=== PATIENT | male | born 1960 | race Caucasian/White ===

== ENCOUNTER 2016-12-12 10:19 | Emergency (ER) | payer OTHER ==
[~2016-12-12] VITALS: Ht 185.4 cm; Wt 115.7 kg
[2016-12-12] VITALS (7 sets, daily range): BP systolic 113–153; BP diastolic 76–91
[2016-12-12] MEDS ORDERED: NKM (12:15)
[2016-12-12 12:26] LABS: EOSINOPHILS % (AUTO) 2.2 % (0.0-3.0); LYMPHOCYTES % (AUTO) 19.6 % (20.0-45.0); MEAN CORPUSCULAR HGB CONC 33.4 G/DL (32.0-36.0); MEAN CORPUSCULAR VOLUME 90 FL (80-99); MEAN PLATELET VOLUME 6.8 FL (6.5-10.1); MONOCYTES % (AUTO) 7.1 % (1.0-10.0); NEUTROPHILS % (AUTO) 70.1 % (45.0-75.0); PLATELET COUNT 221 K/UL (150-450); RED BLOOD COUNT 5.16 M/UL (4.70-6.10); RED CELL DISTRIBUTION WIDTH 11.7 % (11.6-14.8); WHITE BLOOD COUNT 7.1 K/UL (4.8-10.8)
[2016-12-12 12:40] LABS: ALANINE AMINOTRANSFERASE 46 U/L (3-41); ALBUMIN/GLOBULIN RATIO 1.6 (1.0-2.7); ANION GAP 17 (5-15); ASPARTATE AMINO TRANSFERASE 30 U/L (5-40); CALCIUM 9.4 mg/dL (8.6-10.2); CARBON DIOXIDE 23 mEQ/L (20-30); CHLORIDE 101 mEQ/L (98-107); CREATININE 1.2 mg/dL (0.7-1.2); GLOMERULAR FILTRATION RATE > 60 mL/min (>60); HEMOLYSIS 24; POTASSIUM 4.3 mEQ/L (3.4-4.9); SODIUM 141 mEQ/L (135-145); TOTAL PROTEIN 7.6 g/dL (6.6-8.7); TROPONIN I < 0.30 ng/mL (<=0.30)
[2016-12-12 12:50] LABS: CKMB 2.2 ng/mL (< 6.7)
--- NOTE | 2016-12-12 13:02 | Diagnostic Imaging Report ---
Indication: Headache Technique: Contiguous 5 mm thick transaxial imaging of the head obtained in a Siemens Sensation [address] scanner. Soft tissue and bone windows generated. Total Dose length Product (DLP): [address] Dose Index Volume (CTDIvol): 70.38 mGy Comparison: none Findings: There is mild prominence of the ventricles, basal cisterns, and cerebral sulci consistent with atrophy. Mild, nonspecific, white matter hypoattenuation is noted throughout the brain consistent with chronic small vessel disease. There is no midline shift, edema, acute hemorrhage, mass effect, or abnormal extra-axial fluid collections. Bones and extra osseous soft tissues are unremarkable. Impression: No acute intracranial bleed, mass effect or edema. Mild atrophy of the brain. Nonspecific white matter hypoattenuation probably due to chronic small vessel disease. The CT scanner at [facility] is accredited by the [employer] and the scans are performed using protocols designed to limit radiation exposure to as low as reasonably achievable to attain images of sufficient resolution adequate for diagnostic evaluation.
[2016-12-12] MEDS ORDERED: Ketorolac 30mg Inj IV ONE (13:45)
[2016-12-12] MEDS ORDERED: Cyclobenzaprine 10mg Tab ORAL ONE (13:45)
[2016-12-12 14:18] LABS: APPEARANCE,URINE CLEAR; KETONES,URINE 1+ (NEGATIVE); LEUKOCYTE ESTERASE ,URINE 1+ (NEGATIVE); NITRITE,URINE NEGATIVE (NEGATIVE); PH,URINE 6 (4.5-8.0); PROTEIN,URINE 2+ (NEGATIVE); UROBILINOGEN,URINE NORMAL MG/DL (0.0-1.0)
[2016-12-12 14:29] LABS: BACTERIA,URINE FEW /HPF; MUCUS,URINE FEW /LPF (NONE/OCC); RBC,URINE 0-2 /HPF (0 - 0); SQUAMOUS EPITHELIAL CELL,UR OCCASIONAL /LPF (NONE/OCC)
--- NOTE | 2016-12-12 14:52 | Emergency Room Report ---
History of Present Illness General Chief Complaint: Pain Source: Patient Present Illness HPI 56 YO M presents with left shoulder pain radiating to neck and left arm. Associated with dizziness this morning. Denies chest pain, SOB, palpitations, abd pain, nausea/vomiting. Patient denies history of HTN, DM, HLD. Non smoker , non-drinker. No drug use. Father of [place] at ~50. On ROS, endorses "a few months" of headache, worse in morning. Wakes him up at 5am. 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." Allergies: Coded Allergies: No Known Allergies (Unverified , 12/12/16) Patient History Past Medical History: none Past Surgical History: none Pertinent Family History: none Social History: Denies: alcohol use, drug use, smoking Immunizations: UTD Reviewed Nursing Documentation: PMH: Agreed, PSxH: Agreed Nursing Documentation-PMH Past Medical History: No History, Except For Hx Hypertension: Yes Review of Systems All Other Systems: negative except mentioned in HPI Physical Exam Vital Signs Date Time Temp Pulse Resp B/P Pulse Ox O2 Delivery O2 Flow Rate FiO2 12/12/16 10:16 98.1 80 16 113/80 99 12/12/16 13:14 Room Air Sp02 EP Interpretation: reviewed, normal General Appearance: normal inspection, no apparent distress, alert, GCS 15, non -toxic, mild distress Head: normocephalic, atraumatic Eyes: bilateral eye EOMI, bilateral eye PERRL ENT: normal ENT inspection, hearing grossly normal, normal pharynx, no angioedema, normal voice Neck: normal inspection, full range of motion, supple, no carotid bruits Respiratory: normal inspection, lungs clear, normal breath sounds, no rhonchi, no respiratory distress, no retraction, no accessory muscle use, no wheezing Cardiovascular #1: regular rate, rhythm, no edema Gastrointestinal: normal inspection, normal bowel sounds, non tender, soft, no guarding, no hernia Genitourinary: no CVA tenderness Musculoskeletal: normal inspection, back normal, normal range of motion, Francesca' s Sign negative Neurologic: normal inspection, alert, oriented x3, responsive, dress fitter III-XII nml as tested, motor strength/tone normal, speech normal Psychiatric: normal inspection, judgement/insight normal, mood/affect normal Skin: normal inspection, normal color, no rash Procedures Critical Care Time Critical Care Time CC time 60 minutes Care for a 56 YO M with left arm/neck/jaw pain and AM headaches. Regular chiropractor manipulation. DDx includes AMI, dissection, MSK pain Patient is oriented and alert. No trauma. VSS. Afebrile. Comprehensive physical exam completed, atraumatic. Labs include CBC and chem panel, troponin, CXR, EKG 12 lead and constant cardiac rhythm strip monitoring, IV established wide bore, Coags, T&S CT head to evalu for mass as cause of AM headaches CTA neck to eval for dissection Airway adequately maintained by patient upon arrival. CTA neck right vertebral artery dissection. Possible aortic arch dissection seen on CT Neck Physician spent 60 minutes of direct critical care time monitoring patient's respiratory, cardiac and neurological status, reassessment, review of imaging, labs and discussion with attending hospitalist, Vascular Surgeron Dr Cook at [facility] Does not include procedures Medical Decision Making Diagnostic Impression: Primary Impression: Dissection of cerebral artery Additional Impressions: Aortic dissection, thoracoabdominal Neck pain on left side Shoulder pain, left Qualified Codes: M25.512 - Pain in left shoulder Back pain Qualified Codes: M54.5 - Low back pain ER Course 56 YO M found to have acute right vertebral artery dissection. Possible aortic arch dissection as well. BP stable. HR 80. Will HOLD on IV heparin given possible concurrent aortic arch dissection Dr Cook of Vascular Surgery at [facility] consulted on phone - recommends IV heparin if NO dissection of aortic arch. Otherwise medical mgmt only - Dr Cook signed off - states patient can be admitted at [place] with Neuro consult , does NOT warrant transfer. 320pm: CTA chest on wet read from Radiologist also demonstrates aortic dissection extending from aortic root into the abdomen. Official read is pending. Immediate call made back to [facility] to speak with CT Surgery. Patient given dose of Labetolol 10mg IV As of 336pm, [facility] Transfer Desk stating unable to get in touch with any of their CT surgeons We are actively trying transfer to [facility] I endorsed to Dr Hernandez to followup disposition EKG Diagnostic Results Rate: normal Rhythm: NSR ST Segments: no acute changes ASA given to the pt in ED: No Rhythm Strip Diag. Results EP Interpretation: yes Rate: 80 Rhythm: NSR, no PVC's, no ectopy Chest X-Ray Diagnostic Results EP Interpretation: Yes Findings: no consolidation, no effusion, no pneumothorax Number of Views: 1 Last Vital Signs Date Time Temp Pulse Resp B/P Pulse Ox O2 Delivery O2 Flow Rate FiO2 12/12/16 13:14 97.9 65 17 137/79 100 Room Air Status: improved Disposition: ADMITTED INPATIENT Condition: Critical Referrals: NOT CHOSEN IPA/,REFERRING (PCP) MARILOU SALAS M.D. Dec 12, 2016 14:52
--- NOTE | 2016-12-12 14:55 | Diagnostic Imaging Report ---
Indication: Neck pain. Recent chiropractor manipulation of the neck. Pain radiates to the neck and jaw since this morning. Technique: Continuous helical transaxial imaging of the neck was obtained from the aortic arch to the skull base during rapid intravenous contrast administration. Arterial phase of enhancement obtained. Coronal 2-D reformats were also obtained and maximum intensity projection images in multiple planes. Study obtained in a Siemens sensation [address] Total Dose length Product (DLP): [address] Dose Index Volume (CTDIvol): 17, 155, 58 mGy Comparison: None Findings: There is marked amount of artifact involving the lower part of the cervical spine and thoracic inlet to many evaluation of the origins of the common carotid artery and vertebral arteries. The aortic arch appears prominent but is not well opacified. There is a curvilinear focus within the arch noted. There is much artifact and this could represent artifact. The possibility of a dissection should be considered. There is a short segment dissection approximately 3.5 cm long involving the right vertebral artery seen from the level of C4-5 to C2-3. The right vertebral artery appears otherwise unremarkable without evidence of significant stenosis or occlusion to the level of the skull base. The origin of the right vertebral artery is seen but not well imaged because of artifact. The left vertebral artery is difficult to follow due to its small size. At the level of the upper cervical cord and brainstem, the left vertebral artery is not seen. There is a small vessel present on the left which is likely posterior inferior cerebellar artery. The origin of the left vertebral is difficult to see. The common carotid artery appears normal as visualized. The origins of these 2 vessels are not seen well at the level of the arch. The carotid bifurcations appear normal. The internal carotid arteries appear normal below the skull base and are seen to the level of the [place] of [place]. Impression: 3.5 cm short segment segment dissection involving the right vertebral artery from C4-5 to C2-3. No associated abnormalities. Question of a dissection involving the aortic arch. Evaluation limited by considerable artifact. CTA chest will be performed. Small, nondominant left vertebral artery, some portions of which are not well demonstrated. Critical value communication. Findings were discussed via telephone with Dr. Mckay in the emergency department at 2:30 PM, 12/12/16.
[2016-12-12] MEDS ORDERED: Labetalol 5mg/ml 20ml vial IV ONE ×4 (15:15→17:00)
[2016-12-12] MEDS ORDERED: Morphine Sulfate 2mg/ml Inj IVP ONE (15:45)
[2016-12-12] MEDS ORDERED: fentaNYL 100 mcg/2 mL IV ONE ×2 (16:15→17:15)
--- NOTE | 2016-12-13 18:11 | Cardiology Report ---
APPROVED REPORT EKG Measurement Heart [id number] Normal sinus rhythm Moderate voltage criteria for LVH, may be normal variant Borderline ECG
--- NOTE | 2016-12-15 09:39 | Diagnostic Imaging Report ---
Indication: Abnormal CTA neck demonstrate a questionable aortic arch dissection. Technique: Continuous helical transaxial imaging of the chest, abdomen and pelvis was obtained from the thoracic inlet to the pubic symphysis during rapid intravenous contrast administration. Arterial phase of enhancement obtained. Coronal 2-D reformats were also obtained and maximum intensity projection images in multiple planes. Study obtained in a Siemens sensation [address] Total Dose length Product (DLP): [address] Dose Index Volume (CTDIvol): 8x3, 73, 23 mGy Comparison: None Findings: There is evidence of a Octavio type A aortic dissection with the dissection starting at the aortic root extending into the ascending aorta and arch and into the descending thoracic aorta. The ascending aorta and aortic arch are mildly dilated measuring up to 4.7 cm. Both the true lumen and false lumen opacify with contrast material. The dissection extends into the left subclavian artery. The origin of the left vertebral artery opacifies normally. The origin of the right vertebral artery opacifies normally, something that was not seen on the prior CTA neck done earlier today. The abdominal aorta is not as well opacified, but the dissection flap is demonstrated extending to at least the aortic bifurcation and probably involving the left common iliac artery. The celiac artery is also probably dissected. This is not well demonstrated. The SMA appears to arise from the true lumen. The right renal artery probably arises from the true lumen. The left renal artery probably arises from the false lumen. It may be of benefit to repeat the CTA of the abdomen with better contrast opacification of the aorta. Nonvascular findings are as follows: The lungs are essentially clear. There are no consolidative opacities or abnormal fluid collections present. The liver is low in attenuation consistent with fatty infiltration. Gallstones are present. Both kidneys enhance symmetrically. There are diverticula noted within the colon. Surgical clips demonstrated in the medial lower aspect of the cecum consistent with previous appendectomy. Impression: Octavio type A aortic dissection involving the aortic root, ascending aorta, arch, descending aorta with extension into the abdominal aorta to the level of aortic bifurcation. Note: The abdominal aorta is not well valuated on this examination due to relatively poor contrast opacification of the abdominal portion of the aorta and its branches. Dissection extending into the proximal portion of the left subclavian artery from the arch. Dissection probably extending into the celiac trunk. Gallstones Fatty liver Tiny right renal cyst Critical value communication. Findings were discussed via telephone with Dr. Mckay at 12/12/16, at 3 PM .
--- NOTE | 2016-12-15 09:39 | Diagnostic Imaging Report ---
Indication: Chest Pain Comparison: None A single view chest radiograph was obtained. Findings: No definite infiltrate or pulmonary vascular congestion identified. The heart is enlarged. The aorta is mildly enlarged consistent with atherosclerotic vascular disease. The bones are osteopenic. Impression: No acute disease
== END 2016-12-12 18:05 | disposition short-term general hospital (02) ==
LOC: EDBD 10:19 → EMR 11:00
DX: I67.0 Dissection of cerebral arteries, nonruptured (principal); I71.03 Dissection of thoracoabdominal aorta; G31.9 Degenerative disease of nervous system, unspecified
CPT/HCPCS: 36415; 70450; 70498; 71010; 71275; 72191; 74175; 80053; 81003; 82550; 82553; 84484; 85025; 93005; 96374; 96375; 99284; J2270; J3010; Q9967